=== PATIENT | female | born 1965 | race Caucasian/White ===

== ENCOUNTER → 2020-05-07 | Outpatient (CLI) | payer BC, OTHER ==
[2020-05-08 15:15] LABS: RHEUMATOID ARTHRITIS FACTOR <10.0 IU/mL (0.0-13.9)
[2020-05-12 00:11] LABS: CCP ANTIBODIES IGG/IGA 3 units (0-19)
== END ==
LOC: LAB 14:06
PROVIDERS: Internal Medicine
DX: M79.10 Myalgia, unspecified site (principal); M25.50 Pain in unspecified joint; D89.89 Other specified disorders involving the immune mechanism, not elsewhere classified; R76.8 Other specified abnormal immunological findings in serum
CPT/HCPCS: 82550; 83520; 86200; 86431